=== PATIENT | female | born 1965 | race Caucasian/White ===

== ENCOUNTER 2016-05-03 09:40 | Emergency (ER) | payer OTHER ==
[~2016-05-03] VITALS: Ht 157.5 cm; Wt 104.5 kg
[~2016-05-03 09:40] MED LIST: ASPI-973 PO; ATOR40TA69 PO; BUPR1PAT4 TD; BUSP10TA2 PO; CITA40TA13 PO; CYCL10TA9 PO; DEP500A PO; FERR-83 PO; HYDR-4003 PO; KLO5T; LEVO250T45 PO; LEVO50TA6 PO; LISI-567 PO; LORA1TAB PO; MIRT15TA6 PO; NAM10 PO; NPR500T PO; ONDA4TAB12 PO; ONDA4TAB9 PO; PANT40TA3 PO; POLY17PO2; PRAZ1CAP2 PO; PRAZ2CAP2 PO; PREG50CA PO; PROC-4 PO; PROM25TA14 PO; VERA80TA PO
[2016-05-03 09:56] VITALS: BP 153/95; PULSE 71; RESP 15; O2SAT 99
--- NOTE | 2016-05-03 10:06 | ED.REPORT ---
HPI-General Illness Date of Service May 03, 2016 ED Provider: Derrick Stahl DO Ms. Ramirez is a 51 y/o woman with history of CVA and fibromyalgia who presents today for tremors and fatigue. She goes to PT for her neck pain. She went to PT 10:30-11:00 AM yesterday and since then has felt "sluggish and super tired". She also has had mouth tremors for the past month, and they have been mild and able to be controlled. Today is the first time the tremors are out of control. The mouth tremor has worsened over the last week. She follows with neurology, Dr. Juárez, and last saw there about 1 month ago. She has seen neurosurgery for bilateral carpal tunnel syndrome. In the past, she has had catatonic episodes where she could not move, open eyes, or speak with an associated headache but she is able to hear everything around her. She had 10 episodes before being diagnosed but has not had a catatonic episode for a couple of months. She was prescribed Depakote for migraines associated with catatonic state. Her caregiver found her this morning "unresponsive" but pt could hear them but couldn't move or respond to them. Her breathing got low and she is having bad tremors. The episode this morning was similar to her previous catatonic migraine episodes but the jaw tremor is new. She developed a mild headache afterwards. She states that her Lyrica dose was increased 2 months ago by [facility]. When she had the stroke, she had left facial droop and leg weakness. Pt felt "drunk" and lightheaded. Nursing Notes Stated Complaint: ALTERED LEVEL OF CONSCIOUSNESS Chief Complaint: Neuro Symptoms/ Deficits Nursing Notes Reviewed: Yes Allergies: Coded Allergies: gabapentin (Verified Allergy, Intermediate, psychotic, 01/13/16) Contrast Media (Verified Allergy, Unknown, 01/13/16) metoclopramide (Verified Allergy, Unknown, 01/13/16) PT REPORTS IT CAUSES HER TO SHAKE? morphine (Verified Adverse Reaction, Severe, excessive vomiting, 01/13/16) Scheduled Aspirin (Aspirin) 81 Mg Tablet.dr 81 MG PO DAILY Atorvastatin Calcium (Atorvastatin Calcium) 40 Mg Tablet 80 MG PO HS Buspirone (Buspirone) 10 Mg Tablet 10 MG PO TID Citalopram (Citalopram) 40 Mg Tablet 40 MG PO HS Clonazepam (Clonazepam) 0.5 Mg Tablet BID Divalproex DR (Depakote DR) 500 Mg Tablet 500 MG PO BID Swallowed whole without chewing to avoid local irritation of the mouth and throat. Ferrous Sulfate (Ferrous Sulfate) 325 Mg Tablet 325 MG PO MORNING Levofloxacin (Levofloxacin) 250 Mg Tablet 250 MG PO DAILY Levothyroxine (Levothyroxine) 50 Mcg Tablet 50 MCG PO DAILYAC Lisinopril (Lisinopril) 20 Mg Tablet 30 MG PO HS Memantine (Namenda) 10 Mg Tablet 5 MG PO MORNING Memantine (Namenda) 10 Mg Tablet 10 MG PO HS Mirtazapine (Mirtazapine) 15 Mg Tablet 15 MG PO HS Pantoprazole DR (Pantoprazole DR) 40 Mg Tablet.dr 40 MG PO MORNING Polyethylene Glycol 3350 (Polyethylene Glycol 3350) 17 Gm Powd.pack MORNING Prazosin (Prazosin) 1 Mg Capsule 1 MG PO QAM Prazosin (Prazosin) 2 Mg Capsule 2 MG PO HS Pregabalin (Lyrica) 50 Mg Capsule 50 MG PO BID Verapamil (Calan) 80 Mg Tablet 40 MG PO BID Scheduled PRN Buprenorphine (Butrans) 1 Each Patch.tdwk 1 EACH TD WEEKLY PRN PRN For Pain Cyclobenzaprine (Cyclobenzaprine) 10 Mg Tablet 10 MG PO TID PRN PRN Spasm Hydrocodone-Acetaminophen 5-325 mg (Hydrocodone-Acetaminophen 5-325 mg) 1 Each Tablet 1-2 TABLET PO Q4H PRN PRN For Pain Lorazepam (Lorazepam) 1 Mg Tablet 1 MG PO BID PRN PRN Headache Naproxen (Naproxen) 500 Mg Tab 500 MG PO BID PRN PRN For Pain Ondansetron ODT (Ondansetron ODT) 4 Mg Tab.rapdis 1-2 TABLET PO PRN For Nausea Ondansetron ODT (Zofran ODT) 4 Mg Tablet 4 MG PO Q4H PRN PRN For Nausea Prochlorperazine Maleate (Compazine) 10 Mg Tablet 10 MG PO TID PRN PRN Headache Promethazine (Promethazine) 25 Mg Tablet 25 MG PO Q6H PRN PRN Headache Take for headache OR nausea General Time Seen by MD: 10:04 Chief Complaint Other (tremor) Hx Obtained From: Patient Past Medical History Past Medical History fibromyalgia carpal tunnel syndrome migraines chronic pain sleep apnea Past Surgical History denies Smoking History Former Smoker Social History Alcohol Use: Denies alcohol use Drug Use: Other (marijuana) Review of Systems Unable to Obtain ROS Mental status (in the middle of ROS, pt no longer verbally responded but opened her eyes to verbal stimuli) Full Review of Systems Constitutional: Reports: Fatigue, Weakness - generalized, Denies: Chills, Fever Eyes: Denies: Blurred bilateral, Visual loss bilateral Ears / Nose / Throat: Denies: Ear ringing bilateral, Hearing loss bilateral Respiratory: Denies: Non-productive cough, Shortness of breath Cardiovascular: Denies: Chest pain GI: Denies: Abdominal pain Neurologic: Reports: Headache, Unable to speak, Denies: Focal weakness, Seizure Psychiatric: Reports: Change mental status Physical Exam Vital Signs Vital Signs Date Time Temp Pulse Resp B/P Pulse Ox O2 Delivery O2 Flow Rate FiO2 05/03/16 13:30 67 11 116/72 95 Room Air 05/03/16 13:00 68 11 130/75 97 Room Air 05/03/16 09:56 37.2 71 15 153/95 99 Room Air Initial VS: Reviewed General/Constitutional: Awake, No acute distress, Cooperative Pt was awake, alert, and orientedx3 at beginning of exam. In the middle of the interview, she stopped verbally responding but responded to verbal stimuli by turning her eyes towards me. Upon returning to the pt's room with Dr. Stahl, she was again responding verbally to questions. Head / Eyes: Normocephalic, PERRL, EOMI Respiratory / Chest: Breath sounds NL, Breath sounds = bilat, No respiratory distress Cardiovascular: Heart rate NL, Regular rhythm, Heart sounds NL, No gallop, No murmurs, No rubs Abdomen: Soft, Non-tender, No guarding, No rebound, BS normoactive, No distention Lower Extremity / Pelvis / MS: Inspection NL, No swelling, Non-tender, No erythema Neurologic: Oriented X3, Speech NL, No motor deficits, No sensory deficits, CN II - XII intact, Reflexes equal bilat, Memory NL Movement Abnormality: Positive: Dystonia (of lips) Interpretation & Diagnostics Interpretation & Diagnostics: EKG normal sinus rhythm, low voltage in pre-cordial leads CXR: IMPRESSION: No acute process. Cardiomegaly. Dictated by: Jeanna Philip M.D. on 05/03/2016 at 11:35 Approved by: Jeanna Philip M.D. on 05/03/2016 at 11:35 CT brain without contrast: IMPRESSION: No acute intracranial abnormality. Dictated by: Jeanna Philip M.D. on 05/03/2016 at 12:00 Approved by: Jeanna Philip M.D. on 05/03/2016 at 12:00 Urine test is negative Lab Results Interpretation Result Diagram: 05/03/16 1112 05/03/16 1112 Test 05/03/16 11:12 05/03/16 11:50 White Blood Count 7.7th/mm3 (3.8-10.1) Red Blood Count 4.50mil/mm3 (3.90-5.20) Hemoglobin 14.1g/dL (12.0-15.6) Hematocrit 40.4% (35.0-46.0) Mean Corpuscular Volume 89.8fL (81-100) Mean Corpuscular Hemoglobin 31.3pg (27.0-35.0) Mean Corpuscular Hemoglobin Concent 34.9% (32.0-37.0) Red Cell Distribution Width 11.7% (12.3-15.4) Platelet Count 162bil/L (150-400) Neutrophils (%) (Auto) 56.9% (40-74) Lymphocytes (%) (Auto) 30.7% (14-46) Monocytes (%) (Auto) 8.5% (4-12) Eosinophils (%) (Auto) 3.1% (0-5) Basophils (%) (Auto) 0.4% (0-3) Sodium Level 142mEq/L (134-144) Potassium Level 4.1mEq/L (3.5-5.2) Chloride Level 99mEq/L (97-108) Carbon Dioxide Level 29mmol/L (18-29) Blood Urea Nitrogen 15mg/dL (6-24) Creatinine 0.89mg/dL (0.57-1.00) Estimat Glomerular Filtration Rate 97mL/min (>59) Glucose Level 102mg/dL (60-99) Lactic Acid Level 2.7mmol/L (0.4-2.0) Calcium Level 9.1mg/dL (8.5-10.1) Magnesium Level 2.3mg/dL (1.6-2.6) Total Bilirubin 0.3mg/dL (0.0-1.2) Aspartate Amino Transf (AST/SGOT) 29U/L (0-50) Alanine Aminotransferase (ALT/SGPT) 31U/L (0-32) Alkaline Phosphatase 93U/L (25-150) Total Protein 7.0g/dL (6.4-8.4) Albumin 4.0g/dL (3.4-5.0) Salicylates Level < 3.0ug/mL (30-250) Acetaminophen Level < 15.0ug/mL Rx (10-25) Valproic Acid (Depakene) Level 28ug/mL (50-125) Alcohol, Quantitative < 10mg/dL (0-10) Urine Color Yellow (YELLOW) Urine Appearance Hazy (CLEAR,HAZY) Urine pH 6.0 (5.0-8.0) Urine Specific [place] 1.025 (1.003-1.035) Urine Protein Negativemg/dL (NEG,TRACE) Urine Glucose (UA) Negativemg/dL (NEGATIVE) Urine Ketones Negativemg/dL (NEGATIVE) Urine Occult Blood Trace (NEGATIVE) Urine Nitrite Negative (NEGATIVE) Urine Bilirubin Negative (NEGATIVE) Urine Urobilinogen Normalmg/dL (NORMAL) Urine Leukocyte Esterase Small (NEGATIVE) Urine RBC 0-2/hpf (0-2) Urine WBC 11-50/hpf (0-5) Urine Epithelial Cells Occasional/hpf (NONE-MOD) Urine Crystals None seen (NONE SEEN) Urine Bacteria Moderate/hpf (NONE-FEW) Urine Hyaline Casts None/lpf (NONE) Urine Granular Casts None seen (NONE SEEN) Urine Waxy Casts None seen (NONE SEEN) Urine Red Blood Cell Casts None seen (NONE SEEN) Urine White Blood Cell Casts None seen (NONE SEEN) Urine Mucus None seen (None Seen) Urine Trichomonas None seen (NONE SEEN) Urine Yeast None (NONE SEEN) Urinalysis Comment None Urine Culture Reflexed Indicated Re-Eval/Medical Decision Med Decision/Clinical Course 1. Mouth tremors -Pt given 1 mg of lorazepam in the ED -Calcium level is WNL -No reproducible clonus elsewhere on exam 2. catatonic episode -Pt has history of catatonia -CXR does not show acute pulmonary process -CT scan brain without contrast shows no acute intracranial abnormality -Valproic acid level is low, but pt is prescribed Depakote for migraines and as a mood stabilizer and not for seizures 3. UTI -Pt has a UTI based on UA results and given 1 gram of Rocephin in the ED. Reflex urine culture performed. -Likely contributes to mildly elevated lactic acid level Consultation : Referral / Consult Name: Nito Patel MD Consulted With: Neurology Requested Call at: 13:15 Call Returned at: 13:43 Potato Chip Sorter: Agrees with plan Note: Discussed pt in detail with Dr. Patel. Dr. Patel advises that pt does not need to be admitted given her history of catatonia spells. Depakote was prescribed for mood stability and for migraines. He does not think it sounds like serotonin syndrome based on her exam today and duration of mouth tremors. He recommends following up with pain management to discuss Lyrica and to evaluate if it's dose needs to possibly be adjusted based on pt's mouth tremors. He also advises follow up with neurology sooner than her currently scheduled appointment in 11/2016. DDx: medication side effect, migraine, serotonin syndrome, CVA, syncopal episode Discharge & Departure Primary Impression: Catatonia Additional Impressions: Tremor Urinary tract infection Urinary tract infection type: site unspecified Hematuria presence: without hematuria Qualified Code: N39.0 - Urinary tract infection, site not specified Disposition: Home Discharge Condition All VS Reviewed: Yes Condition: Stable Patient Instructions: Urinary Tract Infection in Women (ED) Additional Instructions: Based on your urine sample today, you likely have a urinary tract infection. Your urine has been cultured and you will be notified of the results. The CT scan of your head did not show any acute changes today. You were given 1 gram of Rocephin in the emergency department. Take Keflex 500 mg 1 tablet by mouth twice per day for 7 days. While taking antibiotics, you should eat yogurt or take probiotics to prevent diarrhea. Continue your medications as prescribed. Follow up with pain management to discuss the recent increase of Lyrica and the mouth tremors that you are having. Follow up with neurology, Dr. Juárez sooner than your previously scheduled appointment to further discuss the episode of catatonia. Follow up with your primary care provider in 1 week. Return to the emergency department if you experience new numbness or tingling, chest pain, shortness of breath, trouble breathing, fever, blood in your urine, or abdominal pain. Referrals: Kalyani Kiser MD Other Prior to previously scheduled appointment in 11/2016. Pt had likely another catatonic episode today. She also has new onset mouth tremor. Brigida James PA-C 1 Week [facility] 3 to 4 Days New onset mouth tremor Attending Statement The patient was seen and examined together with Dr. Gutierrez on 05/03/16 and I have added additional information to the note above copies to: Brigida James PA-C, Timothy S DO May 03, 2016 10:06 Smita Gutierrez DO May 03, 2016 10:43
[2016-05-03] MEDS ORDERED: 0.9% Sodium Chloride 1,000 ML IV ONE (11:00)
[2016-05-03 11:20] LABS: BASOPHILS % (AUTO) 0.4 % (0-3); EOSINOPHILS % (AUTO) 3.1 % (0-5); MONOCYTES % (AUTO) 8.5 % (4-12); Mean Corpuscular Hemoglobin 31.3 pg (27.0-35.0); Mean Corpuscular Volume 89.8 fL (81-100); NEUTROPHILS % (AUTO) 56.9 % (40-74); Platelet Count 162 bil/L (150-400)
--- NOTE | 2016-05-03 11:36 | DRSVH ---
PROCEDURE: X-RAY CHEST ONE VIEW, PORTABLE ([id number]) INDICATIONS: weakness TECHNIQUE: One view of the chest was acquired. COMPARISON: [facility], CR, XR CHEST 1VW (PORTABLE), 11/19/2015, 13:25. [facility], CR, XR CHEST 1VW (PORTABLE), 09/13/2015, 13:27. [facility], CR, XR CHEST 1VW (POR TABLE), 06/11/2015, 0:44. FINDINGS: Surgical changes and devices: None. Lungs and pleura: No pleural effusions or pneumothorax. Lungs are clear. Mediastinum: Mediastinal contours appear normal. Heart size is enlarged. Bones and chest wall: No suspicious bony lesions. Overlying soft tissues appear unremarkable. IMPRESSION: No acute process. Cardiomegaly. Dictated by: Jeanna Philip M.D. on 05/03/2016 at 11:35 Approved by: Jeanna Philip M.D. on 05/03/2016 at 11:35
--- NOTE | 2016-05-03 12:02 | DRSVH ---
PROCEDURE: CT BRAIN WITHOUT CONTRAST ([id number]) INDICATIONS: altered mental status TECHNIQUE: Noncontrast 4.5 mm thick angled axial sections acquired from the foramen magnum to the vertex, with c oronal reformats. COMPARISON: [facility], CT, CT BRAIN WO CON, 09/13/2015, 12:54. [facility], CT, CT BRAIN WO CON, 06/10/2015, 22:32. FINDINGS: Image quality: Excellent. CSF spaces: Basal cisterns are patent. No extra-axial fluid collections. Ventricles are normal in size and shape. Brain: No midline shift. No intracranial masses or hemorrhage. Lopez-white matter interface is norm al. Skull and face: Calvarium and visualized facial bones are intact, without suspicious lesions. Sinuses: Visualized sinuses and mastoids are clear. IMPRESSION: No acute intracranial abnormality. Dictated by: Jeanna Philip M.D. on 05/03/2016 at 12:00 Approved by: Jeanna Philip M.D. on 05/03/2016 at 12:00
[2016-05-03 12:23] LABS: Magnesium 2.3 mg/dL (1.6-2.6); Valproic Acid 28 ug/mL (50-125)
[2016-05-03 12:36] LABS: APPEARANCE,URINE HAZY (CLEAR,HAZY); COLOR,URINE YELLOW (YELLOW); OCCULT BLOOD,URINE TRACE (NEGATIVE); UROBILINOGEN,URINE NORMAL (NORMAL)
[2016-05-03] MEDS ORDERED: cefTRIAXone Inj 1,000 MG in IV Premix 1 EACH IV ONE (12:55)
[2016-05-03 13:00] VITALS: BP 130/75; PULSE 68; RESP 11; O2SAT 97
[2016-05-03 13:30] VITALS: BP 116/72; PULSE 67; RESP 11; O2SAT 95
[2016-05-03 15:35] VITALS: BP 101/58; PULSE 77; RESP 15; O2SAT 94
== END 2016-05-03 15:36 | disposition home or self-care (01) ==
LOC: EDBD 09:40 → SED 09:40 → EDUNIT# 09:40 → SED 15:36
DX: F20.2 Catatonic schizophrenia (principal); N39.0 Urinary tract infection, site not specified; M79.7 Fibromyalgia; Z87.891 Personal history of nicotine dependence; Z86.73 Personal history of transient ischemic attack (TIA), and cerebral infarction without residual deficits; Z88.5 Allergy status to narcotic agent; Z88.6 Allergy status to analgesic agent; Z91.041 Radiographic dye allergy status
CPT/HCPCS: 36415; 70450; 71010; 80053; 80164; 81000; 81002; 81025; 83605; 83735; 85025; 87086; 87088; 90791; 93005; 96361; 96365; 96375; 99285; G0480; J0696; J2060; J7030

== ENCOUNTER 2016-07-31 09:28 | Emergency (ER) | payer OTHER ==
[~2016-07-31] VITALS: Ht 157.5 cm; Wt 109.1 kg
[2016-07-31 09:46] VITALS: BP 127/91; PULSE 74; RESP 18; O2SAT 99
--- NOTE | 2016-07-31 11:00 | ED.REPORT ---
HPI-Back Pain 40 and Over Date of Service Jul 31, 2016 ED Provider: Chapito Gaming MD This is a 51 year old female with a history of fibromyalgia, chronic pain, sleep apnea, migraines, and kidney stones presenting to the emergency department complaining of left flank pain that began 3 weeks ago and is persistent. Denies dysuria, hematuria, changes in bowel or bladder habits, fever , chills, nausea, or vomiting at this time. Reports similar symptoms with previous kidney stones. Nursing Notes Stated Complaint: BACK PAIN/POSSIBLE KIDNEY STONES Chief Complaint: Back Pain or Injury Nursing Notes Reviewed: Yes Allergies: Coded Allergies: gabapentin (Verified Allergy, Intermediate, psychotic, 07/31/16) Contrast Media (Verified Allergy, Unknown, 07/31/16) metoclopramide (Verified Allergy, Unknown, 07/31/16) PT REPORTS IT CAUSES HER TO SHAKE? morphine (Verified Adverse Reaction, Severe, excessive vomiting, 07/31/16) Scheduled Aspirin (Aspirin) 81 Mg Tablet.dr 81 MG PO DAILY Atorvastatin Calcium (Atorvastatin Calcium) 40 Mg Tablet 80 MG PO HS Buspirone (Buspirone) 10 Mg Tablet 10 MG PO TID Ciprofloxacin (Ciprofloxacin) 500 Mg Tablet 500 MG PO BID Citalopram (Citalopram) 40 Mg Tablet 40 MG PO HS Clonazepam (Clonazepam) 0.5 Mg Tablet BID Divalproex DR (Depakote DR) 500 Mg Tablet 500 MG PO BID Swallowed whole without chewing to avoid local irritation of the mouth and throat. Ferrous Sulfate (Ferrous Sulfate) 325 Mg Tablet 325 MG PO MORNING Levofloxacin (Levofloxacin) 250 Mg Tablet 250 MG PO DAILY Levothyroxine (Levothyroxine) 50 Mcg Tablet 50 MCG PO DAILYAC Lisinopril (Lisinopril) 20 Mg Tablet 30 MG PO HS Memantine (Namenda) 10 Mg Tablet 5 MG PO MORNING Memantine (Namenda) 10 Mg Tablet 10 MG PO HS Mirtazapine (Mirtazapine) 15 Mg Tablet 15 MG PO HS Pantoprazole DR (Pantoprazole DR) 40 Mg Tablet.dr 40 MG PO MORNING Polyethylene Glycol 3350 (Polyethylene Glycol 3350) 17 Gm Powd.pack MORNING Prazosin (Prazosin) 1 Mg Capsule 1 MG PO QAM Prazosin (Prazosin) 2 Mg Capsule 2 MG PO HS Pregabalin (Lyrica) 50 Mg Capsule 50 MG PO BID Tamsulosin (Flomax) 0.4 Mg Capsule 0.4 MG PO DAILY Verapamil (Calan) 80 Mg Tablet 40 MG PO BID Scheduled PRN Buprenorphine (Butrans) 1 Each Patch.tdwk 1 EACH TD WEEKLY PRN PRN For Pain Cyclobenzaprine (Cyclobenzaprine) 10 Mg Tablet 10 MG PO TID PRN PRN Spasm Hydrocodone-Acetaminophen 5-325 mg (Hydrocodone-Acetaminophen 5-325 mg) 1 Each Tablet 1-2 TABLET PO Q4H PRN PRN For Pain Lorazepam (Lorazepam) 1 Mg Tablet 1 MG PO BID PRN PRN Headache Naproxen (Naproxen) 500 Mg Tab 500 MG PO BID PRN PRN For Pain Ondansetron ODT (Ondansetron ODT) 4 Mg Tab.rapdis 1-2 TABLET PO PRN For Nausea Ondansetron ODT (Zofran ODT) 4 Mg Tablet 4 MG PO Q4H PRN PRN For Nausea Prochlorperazine Maleate (Compazine) 10 Mg Tablet 10 MG PO TID PRN PRN Headache Promethazine (Promethazine) 25 Mg Tablet 25 MG PO Q6H PRN PRN Headache Take for headache OR nausea General Time Seen by MD: 10:42 Chief Complaint Other Hx Obtained From: Patient Arrived By: Walk-in Sudden in Onset?: Yes Onset Occurred: Just prior to arrival Symptom Duration: Since onset Severity: Current: Mild Pertinent Negative: Pt denies other symptoms Recent Healthcare: No recent doctor visit, No recent hospitalization Similar Sx Previous: No Past Medical History Past Medical History fibromyalgia carpal tunnel syndrome migraines chronic pain sleep apnea Reports: Thyroid disease Past Surgical History denies Reports: Appendectomy Family History Noncontributory Smoking History Former Smoker Social History Alcohol Use: Denies alcohol use Drug Use: Other Other Social History: Local resident Occupation Not currently employed Ambulatory Status Independent Review of Systems Constitutional: Denies: Chills, Fever GI: Denies: Abdominal pain, Nausea, Vomiting Female: Reports: Flank pain, Denies: Dysuria, Hematuria, Pelvic pain Complete sys rev & neg: except as marked. Physical Exam Initial Vital Signs Vital Signs (First) Date Time Temp Pulse Resp B/P Pulse Ox O2 Delivery O2 Flow Rate FiO2 07/31/16 09:46 36.5 74 18 127/91 99 Initial VS: Reviewed Head / Eyes: Atraumatic, Normocephalic, PERRL ENT: Mucous membranes moist, Conjunctiva normal, No scleral icterus Neck: Supple, Non-tender, Full range of motion Extremities: Vascular intact, Neuro intact, No swelling, No tenderness Skin: Warm, Dry, No cyanosis Psychiatric: Mood/affect normal, Behavior normal, Normal thought content General/Constitutional: Awake, Alert Respiratory / Chest: Breath sounds NL, Breath sounds = bilat, No respiratory distress, No rales, No rhonchi, No wheezing Cardiovascular: Heart rate NL, Regular rhythm, Heart sounds NL, No murmurs, Peripheral circulation NL Abdomen: Soft, Non-tender, No guarding, No rebound, No distention, No palpable mass, No pulsatile mass Back: No midline vertebral tend, No paraspinal tenderness Mild left lower back tenderness. No CVA tenderness. Neurologic: Oriented X3, Speech NL, No motor deficits, No sensory deficits, Reflexes equal bilat Interpretation & Diagnostics CT KUB IMPRESSION: 1. Nonobstructing 2-3 mm bilateral renal stones, without hydronephrosis. 2. 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 3. 1.4 cm indeterminate groundglass opacity in the posterior left lung base. Following the Fleischner society criteria outlined below, recommend 6 month followup noncontrast chest CT for reassessment. Fleischner Society criteria for SUB-SOLID lung nodule followup. Solitary pure ground-glass nodules<6 mm (ground glass or part solid)No followup needed. 6 mm or larger (ground glass)CT at 6-12 months to confirm persistence, then CT every 2 years until 5 years.6 mm or larger (part solid)CT at 3-6 months to confirm persistence, then annual CT until 5 years if unchanged and solid component remains <6 mm. Multiple sub-solid nodules<6 mmCT at 3-6 months, then CT consider at 2 & 4 years for high risk patients. [address] at 3-6 months. Subsequent management based on most suspicious lesions. Recommendations do not apply to lung cancer screening, patients with immunosuppression, or patients with known primary cancer. Dictated by: Aron James M.D. on 07/31/2016 at 12:05 Approved by: Aron James M.D. on 07/31/2016 at 12:15 Lab Results Interpretation Result Diagram: 07/31/16 1117 07/31/16 1117 Test 07/31/16 10:40 07/31/16 11:17 Urine Color Yellow (YELLOW) Urine Appearance Hazy (CLEAR,HAZY) Urine pH 5.5 (5.0-8.0) Urine Specific [place] 1.025 (1.003-1.035) Urine Protein Negativemg/dL (NEG,TRACE) Urine Glucose (UA) Negativemg/dL (NEGATIVE) Urine Ketones Negativemg/dL (NEGATIVE) Urine Occult Blood Trace (NEGATIVE) Urine Nitrite Negative (NEGATIVE) Urine Bilirubin Negative (NEGATIVE) Urine Urobilinogen Normalmg/dL (NORMAL) Urine Leukocyte Esterase Small (NEGATIVE) Urine RBC 3-10/hpf (0-2) Urine WBC 11-50/hpf (0-5) Urine Epithelial Cells Occasional/hpf (NONE-MOD) Urine Crystals None seen (NONE SEEN) Urine Bacteria Moderate/hpf (NONE-FEW) Urine Hyaline Casts None/lpf (NONE) Urine Granular Casts None seen (NONE SEEN) Urine Waxy Casts None seen (NONE SEEN) Urine Red Blood Cell Casts None seen (NONE SEEN) Urine White Blood Cell Casts None seen (NONE SEEN) Urine Mucus None seen (None Seen) Urine Trichomonas None seen (NONE SEEN) Urine Yeast None (NONE SEEN) Urinalysis Comment None Urine Culture Reflexed Indicated Hold Urine Received (Received) White Blood Count 7.5th/mm3 (3.8-10.1) Red Blood Count 4.41mil/mm3 (3.90-5.20) Hemoglobin 13.5g/dL (12.0-15.6) Hematocrit 40.2% (35.0-46.0) Mean Corpuscular Volume 91.2fL (81-100) Mean Corpuscular Hemoglobin 30.6pg (27.0-35.0) Mean Corpuscular Hemoglobin Concent 33.6% (32.0-37.0) Red Cell Distribution Width 12.9% (12.3-15.4) Platelet Count 134bil/L (150-400) Neutrophils (%) (Auto) 55.0% (40-74) Lymphocytes (%) (Auto) 30.3% (14-46) Monocytes (%) (Auto) 9.6% (4-12) Eosinophils (%) (Auto) 4.1% (0-5) Basophils (%) (Auto) 0.5% (0-3) Sodium Level 140mEq/L (134-144) Potassium Level 4.3mEq/L (3.5-5.2) Chloride Level 100mEq/L (97-108) Carbon Dioxide Level 25mmol/L (18-29) Blood Urea Nitrogen 17mg/dL (6-24) Creatinine 0.90mg/dL (0.57-1.00) Estimat Glomerular Filtration Rate 95mL/min (>59) Glucose Level 142mg/dL (60-99) Calcium Level 9.2mg/dL (8.5-10.1) Total Bilirubin 0.4mg/dL (0.0-1.2) Aspartate Amino Transf (AST/SGOT) 57U/L (0-50) Alanine Aminotransferase (ALT/SGPT) 50U/L (0-32) Alkaline Phosphatase 107U/L (25-150) Total Protein 7.1g/dL (6.4-8.4) Albumin 3.8g/dL (3.4-5.0) Lipase 23U/L (13-60) Re-Eval/Medical Decision Med Decision/Clinical Course 51-year-old female history of kidney stones presenting with left lower back pain intermittent for several weeks. No fevers, nausea vomiting sentences pyelonephritis. Urine suggests UTI. CT abdomen and pelvis shows small bilateral nonobstructing kidney stones. We will treat with antibiotics and Flomax plan follow up with urology this week in primary doctor tomorrow. She is advised to return immediately should she develop any worsening pain, fevers, nausea vomiting, abdominal pain, any other new or worsening symptoms. Patient agrees with plan. Counseled Regarding: Diagnosis, Lab results, Need for follow-up Discharge & Departure Impression: Primary Impression: Nephrolithiasis Additional Impression: UTI (urinary tract infection) Urinary tract infection type: site unspecified Hematuria presence: without hematuria Qualified Code: N39.0 - Urinary tract infection, site not specified Disposition: Home Discharge Condition All VS Reviewed: Yes Condition: Stable Patient Instructions: Nephrolithiasis (ED) Additional Instructions: Thank you for seeking care in the emergency department today. Your CT scan indicated kidney stones. Follow-up with your primary care provider. Return to the emergency department if you develop any new or worsening symptoms. Referrals: Brigida James PA-C (PCP) [facility] Attestation Portions of this note were transcribed by Juli Wagner. I, Dr. Gaming personally performed the history, physical exam and medical decision-making; I reviewed and confirmed the accuracy of the information in the transcribed note. Signed by Marcy Neal, 07/31/2016 at 18:00. Chapito Gaming MD Jul 31, 2016 11:00 JULI WAGNER Jul 31, 2016 11:04
[2016-07-31 11:22] LABS: BASOPHILS % (AUTO) 0.5 % (0-3); EOSINOPHILS % (AUTO) 4.1 % (0-5); MONOCYTES % (AUTO) 9.6 % (4-12); Mean Corpuscular Hemoglobin 30.6 pg (27.0-35.0); Mean Corpuscular Volume 91.2 fL (81-100); Platelet Count 134 bil/L (150-400)
[2016-07-31 11:25] LABS: APPEARANCE,URINE HAZY (CLEAR,HAZY); COLOR,URINE YELLOW (YELLOW); OCCULT BLOOD,URINE TRACE (NEGATIVE); PH,URINE 5.5 (5.0-8.0); UROBILINOGEN,URINE NORMAL (NORMAL)
--- NOTE | 2016-07-31 12:17 | DRSVH ---
PROCEDURE: CT KUB ([id number]) INDICATIONS: 51 year-old female with left flank pain. TECHNIQUE: Noncontrast 5 mm thick sections acquired from the diaphragms to the symphysis. 5 mm thick coronal an d sagittal reformats were then performed. For radiation dose reduction, the following was used: aut omated exposure control, adjustment of mA and/or kV according to patient size. COMPARISON: [facility], CT, CT CHEST WO CON, 01/24/2015, 1:10. FINDINGS: Image quality: Excellent. Lung bases: On axial image 3, 1.4 cm groundglass nodule in the posterior left lung base appears new s stephenie 2014. Heart size is normal. Urinary system: Both kidneys are normal in size. Inferolateral left renal partially exophytic 3.5 x 2.8 cm lesion measures -82 Hounsfield units in density. Solitary nonobstructing 2 mm left renal stone is present, as well as 3 mm right renal stone. No hydronephrosis or perinephric fat stranding. Bot h ureters appear non-dilated throughout their expected courses. Bladder wall thickness is normal; no calcified bladder stones. Other solid organs: Liver and spleen are normal in size. There is diffuse fatty infiltration of the liver, with patchy subcapsular sparing around the gallbladder fossa. Gallbladder wall thickness is n ormal. Pancreas is normal in contours. No adrenal nodules. Peritoneum and bowel: Unenhanced bowel loops demonstrate normal wall thickness and caliber. No colo stuart diverticula. No free fluid or air. Nodes and vessels: No retroperitoneal or mesenteric adenopathy by size criteria. Aorta and inferior vena cava are normal in caliber. Abdominal wall: No ventral hernias. Pelvis: No free pelvic fluid. No inguinal hernias or adenopathy. Uterus and ovaries are normal in size. Bones: No suspicious bony lesions. No vertebral body compression fractures. IMPRESSION: 1. Nonobstructing 2-3 mm bilateral renal stones, without hydronephrosis. 2. 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 3. 1.4 cm indeterminate groundglass opacity in the posterior left lung base. Following the Fleischner society criteria outlined below, recommend 6 month followup noncontrast chest CT for reassessment. Fleischner Society criteria for SUB-SOLID lung nodule followup. Solitary pure ground-glass nodules<6 mm (ground glass or part solid)No followup needed. 6 mm or larg er (ground glass)CT at 6-12 months to confirm persistence, then CT every 2 years until 5 years.6 mm o r larger (part solid)CT at 3-6 months to confirm persistence, then annual CT until 5 years if unchang ed and solid component remains <6 mm. Multiple sub-solid nodules<6 mmCT at 3-6 months, then CT consi brian at 2 & 4 years for high risk patients. [address] at 3-6 months. Subsequent management b ased on most suspicious lesions. Recommendations do not apply to lung cancer screening, patients with immunosuppression, or patients with known primary cancer. Dictated by: Aron James M.D. on 07/31/2016 at 12:05 Approved by: Aron James M.D. on 07/31/2016 at 12:15
[2016-07-31] MEDS ORDERED: TAMS0.4C98 PO (13:14)
[2016-07-31] MEDS ORDERED: CIPR-198 PO (13:14)
== END 2016-07-31 13:34 | disposition home or self-care (01) ==
LOC: SED 09:28
DX: N20.0 Calculus of kidney (principal); N39.0 Urinary tract infection, site not specified; Z87.891 Personal history of nicotine dependence; Z88.5 Allergy status to narcotic agent; Z88.8 Allergy status to other drugs, medicaments and biological substances; Z91.041 Radiographic dye allergy status; Z79.82 Long term (current) use of aspirin; Z79.899 Other long term (current) drug therapy
CPT/HCPCS: 36415; 74176; 80053; 81000; 83690; 85025; 87086; 87088; 96372; 99285; J1885

== ENCOUNTER 2016-11-30 10:27 | Inpatient (IN) | payer MEDICAID, OTHER ==
[~2016-11-30] VITALS: Ht 157.5 cm; Wt 106.8 kg
[~2016-11-30 10:27] MED LIST changes: +CIPR-198 PO; +TAMS0.4C98 PO
[2016-11-30 10:31] VITALS: BP 117/83; PULSE 89; RESP 16; O2SAT 96
--- NOTE | 2016-11-30 11:33 | ED.REPORT ---
HPI-Psychiatric Illness Date of Service Nov 30, 2016 ED Provider: Nikhil Lornezo PA-C Nesha is a 51-year-old female with a history of depression and anxiety, suicide attempt, CVA, DM, apnea, migraines presents to the emergency department with a chief complaint suicidal ideation. Patient reports increasing depression and anxiety as well as "constant" thoughts of suicide over the last 6 months. She cites the end of a 30 year relationship and the necessity to change her living situation as causes. Patient reports a history of suicide attempt through overdose. Her plan today would be to overdose again. She also reports a history of several hospitalizations in this facility for similar complaints. Patient was referred from her pain clinic where she confided that she has thoughts of suicide. She is treated for pain primarily located in her hands and feet with Butrans and Lyrica. Patient reports that she currently lives with 2 other women, does not have access to firearms. She does engage with the primary care provider as well as [facility], whom she has plans to see next week. Currently being treated for an ulcer on her left foot. Admits to ongoing pain in her hands and feet. Denies other complaints. Denies use of drugs or alcohol. Patient wishes to be admitted to the hospital. Nursing Notes Stated Complaint: PSYCH EVAL Chief Complaint: Psychiatric Complaint Nursing Notes Reviewed: Yes Allergies: Coded Allergies: gabapentin (Verified Allergy, Intermediate, psychotic, 07/31/16) Contrast Media (Verified Allergy, Unknown, 07/31/16) metoclopramide (Verified Allergy, Unknown, 07/31/16) PT REPORTS IT CAUSES HER TO SHAKE? morphine (Verified Adverse Reaction, Severe, excessive vomiting, 07/31/16) Scheduled Aspirin (Aspirin) 81 Mg Tablet.dr 81 MG PO DAILY Atorvastatin Calcium (Atorvastatin Calcium) 40 Mg Tablet 80 MG PO HS Buspirone (Buspirone) 10 Mg Tablet 10 MG PO TID Ciprofloxacin (Ciprofloxacin) 500 Mg Tablet 500 MG PO BID Citalopram (Citalopram) 40 Mg Tablet 40 MG PO HS Clonazepam (Clonazepam) 0.5 Mg Tablet BID Divalproex DR (Depakote DR) 500 Mg Tablet 500 MG PO BID Swallowed whole without chewing to avoid local irritation of the mouth and throat. Ferrous Sulfate (Ferrous Sulfate) 325 Mg Tablet 325 MG PO MORNING Levofloxacin (Levofloxacin) 250 Mg Tablet 250 MG PO DAILY Levothyroxine (Levothyroxine) 50 Mcg Tablet 50 MCG PO DAILYAC Lisinopril (Lisinopril) 20 Mg Tablet 30 MG PO HS Memantine (Namenda) 10 Mg Tablet 5 MG PO MORNING Memantine (Namenda) 10 Mg Tablet 10 MG PO HS Mirtazapine (Mirtazapine) 15 Mg Tablet 15 MG PO HS Pantoprazole DR (Pantoprazole DR) 40 Mg Tablet.dr 40 MG PO MORNING Polyethylene Glycol 3350 (Polyethylene Glycol 3350) 17 Gm Powd.pack MORNING Prazosin (Prazosin) 1 Mg Capsule 1 MG PO QAM Prazosin (Prazosin) 2 Mg Capsule 2 MG PO HS Pregabalin (Lyrica) 50 Mg Capsule 50 MG PO BID Tamsulosin (Flomax) 0.4 Mg Capsule 0.4 MG PO DAILY Verapamil (Calan) 80 Mg Tablet 40 MG PO BID Scheduled PRN Buprenorphine (Butrans) 1 Each Patch.tdwk 1 EACH TD WEEKLY PRN PRN For Pain Cyclobenzaprine (Cyclobenzaprine) 10 Mg Tablet 10 MG PO TID PRN PRN Spasm Hydrocodone-Acetaminophen 5-325 mg (Hydrocodone-Acetaminophen 5-325 mg) 1 Each Tablet 1-2 TABLET PO Q4H PRN PRN For Pain Lorazepam (Lorazepam) 1 Mg Tablet 1 MG PO BID PRN PRN Headache Naproxen (Naproxen) 500 Mg Tab 500 MG PO BID PRN PRN For Pain Ondansetron ODT (Ondansetron ODT) 4 Mg Tab.rapdis 1-2 TABLET PO PRN For Nausea Ondansetron ODT (Zofran ODT) 4 Mg Tablet 4 MG PO Q4H PRN PRN For Nausea Prochlorperazine Maleate (Compazine) 10 Mg Tablet 10 MG PO TID PRN PRN Headache Promethazine (Promethazine) 25 Mg Tablet 25 MG PO Q6H PRN PRN Headache Take for headache OR nausea General Time Seen by MD: 11:08 Chief Complaint Suicidal ideation Risk-Psychiatric Illness Suicide Risk Stratification Suicide Risk Factors - Adult: : Previous attempt: Prior psych admissionNo: Access to firearms, Alcohol use, Substance abuse RF Statements: Risk factors reviewed Past Medical History Past Medical History fibromyalgia carpal tunnel syndrome migraines chronic pain sleep apnea Reports: Thyroid disease Past Surgical History denies Reports: Appendectomy Family History Noncontributory Smoking History Former Smoker Social History Alcohol Use: Denies alcohol use Drug Use: Other Other Social History: Local resident Occupation Not currently employed Ambulatory Status Independent Review of Systems General: Denies fever, chills, malaise. HEENT: Denies congestion, headache, sore throat. Respiratory: Denies dyspnea, cough, shortness of breath, wheezing. Cardiovascular: Denies chest pain, palpitations. Gastrointestinal: Denies vomiting, diarrhea, abdominal pain. Genitourinary: Denies frequency, urgency, dysuria, hematuria. Denies vaginal bleeding/discharge Otherwise as noted in HPI. Physical Exam General: Well appearing, well developed, well nourished, no acute distress. Browsing the Internet on her phone while reclining on a gurney Head: Atraumatic, normocephalic. Eyes: No scleral icterus or injection. No discharge. Vision grossly intact. ENT: Voice clear, hearing grossly intact. Respiratory: Regular rate and rhythm. Breath sounds present, clear to auscultation and equal bilaterally. No respiratory distress. No increased work of breathing, speaks in complete sentences. Cardiovascular: Regular rate and rhythm, without murmur, gallop or rub. No pedal edema. Gastrointestinal: Abdomen flat and non-tender without guarding or rebound. Bowel sounds normoactive. Skin: Warm and dry. Feet: DP and PT pulses 2+, negative pedal edema. There is a 1 cm dark bruise beneath the callus on the lateral aspect of her calcaneus on the left. This is tender to palpation. There is an area of mild tenderness on the contralateral heel in a similar location. Sensation and brisk capillary refill are intact in the phalanges. Neurological: Grossly nonfocal. Psychological: Alert and oriented. Speech appropriate, linear and logical. Behavior appropriate. Affect is somewhat flat. Initial Vital Signs Vital Signs (First) Date Time Temp Pulse Resp B/P Pulse Ox O2 Delivery O2 Flow Rate FiO2 11/30/16 10:31 37.0 89 16 117/83 96 Room Air Normal Interpretation & Diagnostics Lab Results Interpretation Result Diagram: 11/30/16 1135 11/30/16 1135 Test 11/30/16 10:54 11/30/16 11:35 Hold Urine Received (Received) White Blood Count 8.7th/mm3 (3.8-10.1) Red Blood Count 4.25mil/mm3 (3.90-5.20) Hemoglobin 13.1g/dL (12.0-15.6) Hematocrit 38.1% (35.0-46.0) Mean Corpuscular Volume 89.6fL (81-100) Mean Corpuscular Hemoglobin 30.8pg (27.0-35.0) Mean Corpuscular Hemoglobin Concent 34.4% (32.0-37.0) Red Cell Distribution Width 13.6% (12.3-15.4) Platelet Count 133bil/L (150-400) Neutrophils (%) (Auto) 58.7% (40-74) Lymphocytes (%) (Auto) 30.4% (14-46) Monocytes (%) (Auto) 8.0% (4-12) Eosinophils (%) (Auto) 2.1% (0-5) Basophils (%) (Auto) 0.2% (0-3) Sodium Level 141mEq/L (134-144) Potassium Level 4.3mEq/L (3.5-5.2) Chloride Level 99mEq/L (97-108) Carbon Dioxide Level 25mmol/L (18-29) Blood Urea Nitrogen 18mg/dL (6-24) Creatinine 0.99mg/dL (0.57-1.00) Estimat Glomerular Filtration Rate 85mL/min (>59) Glucose Level 120mg/dL (60-99) Calcium Level 9.4mg/dL (8.5-10.1) Total Bilirubin 0.3mg/dL (0.0-1.2) Aspartate Amino Transf (AST/SGOT) 99U/L (0-50) Alanine Aminotransferase (ALT/SGPT) 72U/L (0-32) Alkaline Phosphatase 148U/L (25-150) Total Protein 7.4g/dL (6.4-8.4) Albumin 4.1g/dL (3.4-5.0) Thyroid Stimulating Hormone (TSH) 0.619uIU/mL (0.450-4.500) Re-Eval/Medical Decision Med Decision/Clinical Course Is a 51-year-old female with a history of depression and suicide attempt presenting for suicidal ideation. She reports increasing depression, anxiety and thoughts of harming herself through overdose over the last 6 months. Reports recent end of a 30 year relationship as well as the necessity of changing her living situation. She is referred by pain clinic where she reported her suicidal thoughts. Patient admits to ongoing pain in her hands and feet which is chronic. She denies other physical complaints. Physical examination reveals a early stage ulcer on the lateral aspect of her left calcaneus. Otherwise benign. Normal vital signs. Urine tox is positive for benzodiazepines, breathalyzer is 0. CBC, CMP and TSH are ordered, social work referral placed. Patient is seeking admission. Discussed the case with DAYSI Goff. She arranges admission, which is accepted by Dr. Reyes. Patient is transferred to the mental health unit in stable condition.. Discharge & Departure Impression: Primary Impression: Suicidal ideation Disposition: ADMITTED TO HOSPITAL Referrals: Brigida James PA-C (PCP) EDSupervising Provider for APC: Ted Dempsey MD Attending Statement I saw and evaluated the patient in conjunction with the PA. I agree with the plan and findings as documented above. In brief, 51-year-old female presenting to the ED for evaluation several ideations. Well appearing, no acute distress. Nonlabored respirations. Good peripheral perfusion. RRR. No homicidal ideations. Given above, plan social work consult for voluntary admission. Nikhil Lorenzo PA-C Nov 30, 2016 11:32 Ted Dempsey MD Nov 30, 2016 11:56
[2016-11-30 11:46] LABS: BASOPHILS % (AUTO) 0.2 % (0-3); EOSINOPHILS % (AUTO) 2.1 % (0-5); Mean Corpuscular Hemoglobin 30.8 pg (27.0-35.0); Mean Corpuscular Volume 89.6 fL (81-100); NEUTROPHILS % (AUTO) 58.7 % (40-74); Platelet Count 133 bil/L (150-400)
[2016-11-30 14:22] VITALS: BP 102/74; PULSE 80; RESP 16; O2SAT 95
[2016-11-30 16:01] VITALS: BP 102/74; PULSE 80; RESP 16; O2SAT 95
[2016-11-30] MEDS ORDERED: Magnesium Hydroxide 10 mL Oral Concentration PO PRN (19:35)
[2016-11-30] MEDS ORDERED: Alum-Mag Hydrox-Simeth 30 mL Suspension PO PRN (19:35)
--- NOTE | 2016-11-30 19:46 | NUR ---
Nursing: Voluntary admit from ED @1615: 51 yo female w/5 day cert by Mirna Gillette (renewal on ); Nesha is admitted with SI and Hx of depression and anxiety. These symptoms have been increasing over the last 6 months, especially the last 1 1/2 months with 'constant' thoughts of suicide by overdose. She reports the end of a 30 year relationship and has been asked to move by the end of the year. She has been able to find a place in February. She also has chronic pain issues and is working with the [facility] pain clinic where she says she has been getting Lyrica, Baclofen and a Q weekly Buprenorphine patch. Her pain is generalized and especially hands and feet; her feet she describes as 7/10 and tender. She has a dime-sized area on outer L heel that looks like a resolving blood blister and is tender to touch. She says she was started on an antibiotic about 4 days ago but doesn't know what it was and I can't determine this through her records. She had a CVA in 2009 says she uses a c-pap and an order was received to set this up for her. Reports a few weeks ago was diagnosed with diabetes and started Metformin and says her blood sugars which she was checking randomly went from 300-400's to 100-200's. This was through her PCP, Dorinda Bourgeois. She is in the middle of a disability claim and has a hearing coming up soon(Jan 10) Pt is A&0 x4 and pleasant and cooperative. Her affect is blunted and sad but has been out in the milieu and social with peers.She is linear and logical and denies any psychotic sx. She continues with suicidal thoughts, and hopeless but will contract for safety.
[2016-11-30] MEDS: Polyethylene Glycol (PEG) 17 Gm Powder PO SCH ×2 (20:30→21:55)
[2016-11-30] MEDS: BusPIRone 15 mg Dividose Tablet PO SCH (21:56)
--- NOTE | 2016-12-01 05:16 | NUR ---
nursing, nights, 11-7 s- the noise woke me up. are things ok ? can i have some juice. thank you. o- has appeared to sleep [id number] and after 0030. awake briefly when rt brought c-pap machine at 0200. assessed q 15 minutes. a- interupted sleep, no apparent physical distress. p- monitor behavior/emotional state, quality, times and amount of sleep, use and effect of medication. justyn
[2016-12-01] MEDS: Pantoprazole 40 mg ER24 Tablet PO SCH ×2 (08:23→16:44)
[2016-12-01] MEDS: BusPIRone 15 mg Dividose Tablet PO SCH ×3 (08:24→20:25)
[2016-12-01] MEDS: buPROPion XL 300 mg ER24 Tablet PO SCH (08:25)
[2016-12-01] MEDS: Polyethylene Glycol (PEG) 17 Gm Powder PO SCH ×2 (08:27→20:30)
[2016-12-01 10:05] VITALS: BP 110/74; PULSE 82; RESP 16
--- NOTE | 2016-12-01 10:05 | NUR ---
Nursing Day Pt spending equal amounts of time in her room and out in the milieu. Morning BG 176, she is on oral metformin. Ate breakfast and took morning medications. She reports feeling safe on the unit and currently denying thoughts of self harm. She states "I feel quiet. I am just reflecting on things." Pt pleasant, calm and cooperative with care.
[2016-12-01] MEDS ORDERED: Alum-Mag Hydrox-Simeth 30 mL Suspension PO PRN (15:00)
[2016-12-01] MEDS ORDERED: Benzocaine-Menthol Lozenge 2/Pkg PO PRN (15:00)
[2016-12-01] MEDS ORDERED: Magnesium Hydroxide 10 mL Oral Concentration PO PRN (15:00)
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
--- NOTE | 2016-12-01 18:03 | NUR ---
[facility] Day Shift Pt maintained behavioral control throughout the shift. Pt affect appears flat, sad. Pt spends most of the shift isolating from peers and resting in her room. Pt is only slightly active on the unit and is not social with peers. Pt initially asked to share a room with another pt (due to both pt's need for a medical room), but pt decided she would prefer a single room by the the afternoon, which staff was able to accommodate. Pt did not engage in any unit activities throughout the shift. Pt attended all meals and ate approx 80% of all meals.
--- NOTE | 2016-12-01 19:05 | NUR ---
Advertising Agent/Counselor: S: "I'm sad today." O: Patient only slept 2.5 hours last night per staff. Patient did not rate S/I, but denies H/I. She also denies auditory and visual hallucinations. Depression is 7/10 and anxiety is 7/10. When asked her mood, patient stated, "Quiet and sad." A: Patient is cooperative, lethargic, withdrawn, detached, anxious, poor historian, poor insight, poor judgment. P: Follow the care plan, coordinate with out-patient providers.
--- NOTE | 2016-12-02 06:57 | NUR ---
Nursing Note Mediator 7pm to 7am Pt awake of start of shift, sitting in day room watching tv and interacting minimally with peers. Pts BS at bedtime 157. Pt given Ambien 5mg for sleep, went to bed at 2200 and slept through the night with uninterrupted sleep. Pt reports a foot ulcer on left foot however it was not assessed by this news writer as pt. went to bed early. Report given to oncoming RN. Monitored pt. q 15 minutes for safety, location, and accountability
[2016-12-02] MEDS: Polyethylene Glycol (PEG) 17 Gm Powder PO SCH ×2 (07:05→20:05)
[2016-12-02] MEDS: Pantoprazole 40 mg ER24 Tablet PO SCH ×2 (07:54→16:49)
[2016-12-02] MEDS: BusPIRone 15 mg Dividose Tablet PO SCH ×3 (07:54→20:38)
[2016-12-02] MEDS: buPROPion XL 300 mg ER24 Tablet PO SCH (08:30)
[2016-12-02 11:43] VITALS: BP 116/81; PULSE 83; RESP 16
--- NOTE | 2016-12-02 17:31 | NUR ---
Nursing Note [id number] Behavior S/O: Pt rates mood at a "6" on a scale of 1-10/10 the best. She states her mood is better "since I talked with the doctor and have been working on the exercises that he gave me." Pt is pleasant & cooperative. Pt has been in her room most of the day. She reports her foot has been painful. Pt has a dark spot under the skin approximately 1 cm across. There is a black marker around the perimeter. Pt reports, "My doctor said if it got any bigger than that [harry], I need to go to the emergency room." Pt says she is planning on going home tomorrow & has a follow-up appointment on Sunday with her doctor & will have him look at it then. Conversation tracking clear & organized with normal rate & rhythm. Full affect. Pt denies suicidal ideation. Pt states she wants to go home as she has a lot of things she needs to do. A: Pt slowly improving. P: Provide supportive environment. Monitor medications & effects.
[2016-12-02 19:55] VITALS: BP 114/80
--- NOTE | 2016-12-02 21:13 | NUR ---
OBSERVATIONS 0900 TO 2130 Pt was pleasant and cooperative with staff, social and appropriate when interacting with peers. Pt was isolative at times throughout the day, resting in her room. Pt states that the doctor has agreed to have her discharge tomorrow which pleases her. Pt participated in evening wrap-up and rated her mood at a 7/10. Maintained Q15 checks for safety as directed.
--- NOTE | 2016-12-03 06:24 | NUR ---
Nursing Note Farm Machinery Set Up Mechanic 7pm to 7am Pt reports mood is improving, reports depression is a 3/10, anxiety 5/10. Pt approached RN and stated she has a Butran pain patch on her stomach, that she came in with, prescribed from her pain clinic for neuropathic pain in her feet due. Pt reports that she is concerned she could withdrawl as the patch is due to be changed weekly and is expiring. Pt reports she is having some symptoms of withdrawl such as body aches, and upset stomach. Informed pt. that MD is aware of the patch however he reported that she had not spoken about it during their meeting today. Pt is supposedly leaving tomorrow and has patches at home. Pt given Tylenol for pain, Zofran for nausea with good relief. Pt slept through the night with minor interruptions. Monitored pt. q 15 minute checks for safety, location and accountability
[2016-12-03] MEDS: buPROPion XL 300 mg ER24 Tablet PO SCH (08:11)
[2016-12-03] MEDS: BusPIRone 15 mg Dividose Tablet PO SCH (08:14)
[2016-12-03] MEDS: Pantoprazole 40 mg ER24 Tablet PO SCH (08:15)
[2016-12-03] MEDS: Polyethylene Glycol (PEG) 17 Gm Powder PO SCH (08:30)
--- NOTE | 2016-12-03 12:07 | PCM.PNPSY ---
Subjective Date of Service Dec 02, 2016 Subjective The patient stated that she would "like to go home tomorrow, I think I will be ready." She stated that she has an upcoming disability hearing in December and that originally they had an open-ended plan for her to stay at the house with her former partner but now that is changed to March of this year. She feels this is due to the influence of a new roommate who was reportedly rude to her friend, Maria M when she called asking for some clothes and reportedly hung up on her. She plans to move into Maria M's home in February but this may occur earlier. She reports that she has a counseling appointment on Sunday. She denies side effects to medications Sleep: 8+ hours. Appetite: Reports the diabetic diet is not good and has not been eating at as much Suicidal and homicidal ideation: Denies Auditory hallucinations: Denies Visual hallucinations: Denies Other Psychotic Symptoms: N/A Anxiety: "A little because my home situation." Depression: "A little on the high side." Current Medications Current Medications Aspirin 81 mg DAILY PO Last administered on 12/02/16 07:56; Admin Dose 81 MG; Start 12/02/16 at 08:30 Atorvastatin Calcium 80 mg HS PO Last administered on 12/01/16 21:32; Admin Dose 80 MG; Start 11/30/16 at 21:00 Bupropion HCl 300 mg DAILY PO Last administered on 12/01/16 08:25; Admin Dose 300 MG; Start 12/01/16 at 08:30 Buspirone HCl 20 mg TID PO Last administered on 12/02/16 14:04; Admin Dose 20 MG; Start 11/30/16 at 20:30 Ciprofloxacin 500 mg BID PO Last administered on 12/01/16 21:31; Admin Dose 500 MG; Start 12/01/16 at 20:30; Stop 12/04/16 at 20:31 Citalopram Hydrobromide 30 mg DAILY PO Last administered on 12/02/16 07:55; Admin Dose 30 MG; Start 12/02/16 at 08:30 Citalopram Hydrobromide 40 mg DAILY PO Last administered on 12/01/16 08:26; Admin Dose 40 MG; Start 12/01/16 at 08:30; Stop 12/01/16 at 12:08; Status DC Clonazepam 0.5 mg BID PO Last administered on 12/02/16 07:56; Admin Dose 0.5 MG ; Start 11/30/16 at 20:30 Divalproex Sodium 500 mg BID PO Last administered on 12/02/16 07:56; Admin Dose 500 MG; Start 11/30/16 at 20:30 Hydrochlorothiazide 25 mg DAILY PO Last administered on 12/02/16 07:56; Admin Dose 25 MG; Start 12/01/16 at 08:30 Levothyroxine Sodium/ Levothyroxine Sodium 175 mcg DAILYAC PO Last administered on 12/01/16 08:23; Admin Dose 175 MCG; Start 12/01/16 at 07:30; Stop 12/02/16 at 08:00; Status DC Levothyroxine Sodium/ Levothyroxine Sodium 175 mcg DAILYAC PO Last administered on 12/02/16 09:23; Admin Dose 175 MCG; Start 12/02/16 at 07:59 Lisinopril 30 mg DAILY PO Last administered on 12/01/16 08:25; Admin Dose 30 MG ; Start 12/01/16 at 08:30 Metformin HCl 1,000 mg BID PO Last administered on 12/02/16 07:56; Admin Dose 1 ,000 MG; Start 12/01/16 at 08:30 Mirtazapine 15 mg HS PO Last administered on 12/01/16 20:31; Admin Dose 15 MG; Start 12/01/16 at 21:00 Pantoprazole 40 mg BIDAC PO Last administered on 12/02/16 16:49; Admin Dose 40 MG; Start 12/01/16 at 07:30 Polyethylene Glycol 17 gm BID PO Last administered on 12/02/16 07:05; Admin Dose 17 GM; Start 11/30/16 at 20:30 Pregabalin 50 mg BID PO Last administered on 12/02/16 07:57; Admin Dose 50 MG; Start 12/01/16 at 08:30 Zolpidem Tartrate START WITH 5 MG AND MAY REP... HS PRN PO Last administered on 12/01/16 20:31; Admin Dose 5 MG; Start 11/30/16 at 19:35 Mental Status Exam Vital Signs Vital Signs Date Time Temp Pulse Resp B/P Pulse Ox O2 Delivery O2 Flow Rate FiO2 12/02/16 11:43 36.2 83 16 116/81 Appearance: Neat/well groomed Attitude: Pleasant, Cooperative Behavior: No unusual behavior Affect: Well Modulated/Appropriate Mood: Anxious Thought Process/Associations: Logical/Sequential, Goal Directed Speech Production: Normal Speech Rate: Normal Speech Articulation: Normal Thought Content: Appropriate Danger to Self/Suicidal Ideati: None Danger to Others: None Hallucinations: Auditory (Denies), Visual (Denies) Consciousness: Alert Orientation: Person, Place, Date, Situation Memory: Grossly Intact Estimate Intellectual Function: Average Attention/Concentration & Cogn: Grossly Intact Insight: Good Judgement: Good Result Diagram: 11/30/16 1135 11/30/16 1135 Mental Health Plan The patient is a 51-year-old white female, with worsening symptoms of major depression that is being compounded by a breakup of a long-term relationship. She is needing to move out by March and this is causing extreme stress to the point where all of her depressive symptoms have worsened as well as she now has suicidal ideation and a history of a previous suicide attempt. The patient requested inpatient treatment for safety and licensed professional counselor. The patient was on relatively high doses of multiple different medications. Given the fact that she was on citalopram, buspirone, mirtazapine, and Wellbutrin, there was some concern about potential for serotonin syndrome. The patient was agreeable to decreasing citalopram to 30 mg and mirtazapine to 15 mg nightly which should be more effective for insomnia. [place] AXIS I 1. Major depressive disorder, recurrent. 2. Adjustment disorder. AXIS II Defer. AXIS III Hypertension, CVA 2010, sleep apnea, ets-gtptfgp-vbeouvjim diabetes, hypothyroidism, foot ulcer, left foot. AXIS IV Patient has poor coping skills and is quite frightened about the potential of being on her own AXIS V 40 Treatments 1. The patient is admitted to the inpatient unit and will be provided a safe and secure environment. 2. The patient is denying current active suicidality and is not in need of a one-to-one at this time. She is agreeing to notify us should he have any acute suicidal or homicidal thoughts. 3. The patient is encouraged to participate with group and milieu activities. 4. The patient will be seen by the treatment team on a daily basis to assess symptoms, side effects and response to treatment. 5. The patient will be continued on lowered dose of citalopram 30 mg daily for depression. 6. The patient will be continued on buspirone 20mg po tid 7. The patient will be continued on lowered dose of mirtazapine 15mg nightly 8. Continue clonazepam and valproic acid as written 9. Anticipated length of stay is 1-2 days. Zhen Monson MD Dec 02, 2016 18:54
--- NOTE | 2016-12-03 12:15 | PCM.DIMED ---
Discharge Instructions Date of Service Dec 03, 2016 Dates of Hospitalization Nov 30, 2016 at 15:54 Discharge Diagnosis Discharge Diagnosis AXIS I 1. Major depressive disorder, recurrent. 2. Adjustment disorder with anxious mood. AXIS II Defer. AXIS III Hypertension, CVA 2009, sleep apnea, whd-tougjzk-putwwnkkz diabetes, hypothyroidism, foot ulcer, left foot. AXIS IV Severe with: Chronic pain; Chronic medical condition; Unemployment; Cognitive impairment; Relationship conflicts w/spouse and roommate and recent separation from spouse. AXIS V 50 Test Results Test Results CBC Test 11/30/16 11:35 White Blood Count 8.7th/mm3 (3.8-10.1) Red Blood Count 4.25mil/mm3 (3.90-5.20) Hemoglobin 13.1g/dL (12.0-15.6) Hematocrit 38.1% (35.0-46.0) Mean Corpuscular Volume 89.6fL (81-100) Mean Corpuscular Hemoglobin 30.8pg (27.0-35.0) Mean Corpuscular Hemoglobin Concent 34.4% (32.0-37.0) Red Cell Distribution Width 13.6% (12.3-15.4) Platelet Count 133bil/L (150-400) Neutrophils (%) (Auto) 58.7% (40-74) Lymphocytes (%) (Auto) 30.4% (14-46) Monocytes (%) (Auto) 8.0% (4-12) Eosinophils (%) (Auto) 2.1% (0-5) Basophils (%) (Auto) 0.2% (0-3) CMP Test 11/30/16 11:35 Sodium Level 141mEq/L Potassium Level 4.3mEq/L Chloride Level 99mEq/L Carbon Dioxide Level 25mmol/L Blood Urea Nitrogen 18mg/dL Creatinine 0.99mg/dL Estimat Glomerular Filtration Rate 85mL/min Glucose Level 120mg/dL Calcium Level 9.4mg/dL Total Bilirubin 0.3mg/dL Aspartate Amino Transf (AST/SGOT) 99U/L Alanine Aminotransferase (ALT/SGPT) 72U/L Alkaline Phosphatase 148U/L Total Protein 7.4g/dL Albumin 4.1g/dL Thyroid Stimulating Hormone (TSH) 0.619uIU/mL Diet Discharge Diet: Diabetic Activity Discharge Activity: No restrictions Call your provider Call your provider for: Other (worsening depression) Patient Instructions Patient Instructions Should you have any thoughts of harming yourself or others, please call the crisis line, your provider, 911, or go to the nearest Emergency Department. Do not change or discontinue your medications without discussing with your provider. You have been given a prescription for 30 days supply of your new medication Follow-up plan Counselor: Le Franklin on Sunday12/05/16 per patient report. Family Practice Brigida James on Sunday12/04/16 per patient report. Zhen Monson MD Dec 03, 2016 12:15
[2016-12-03] MEDS ORDERED: METF500T PO (12:33)
[2016-12-03] MEDS ORDERED: MIRT15TA6 PO (12:33)
[2016-12-03] MEDS ORDERED: BUSP15TA3 PO (12:33)
[2016-12-03] MEDS ORDERED: BUPR300T51 PO (12:33)
[2016-12-03] MEDS ORDERED: HYDR25TA4 PO (12:33)
[2016-12-03] MEDS ORDERED: LEVO50TA6 PO (12:33)
[2016-12-03] MEDS ORDERED: CITA20TA PO (12:33)
[2016-12-03] MEDS ORDERED: BACL10TA PO (12:33)
[2016-12-03] MEDS ORDERED: PREG50CA PO (12:34)
--- NOTE | 2016-12-03 13:58 | NUR ---
Nursing Discharge Note: Patient cooperative with discharge process. Acknowledges understanding of d/c instructions and has a copy with them upon leaving unit at 1350. Belongings accounted for and with patient. Prescriptions faxed to patients pharmacy [facility]. Hard copies with patient. Patient denies harmful thoughts and hallucinations at this time.
--- NOTE | 2016-12-03 17:35 | PCM.DC.MED ---
Discharge Summary Date of Service Dec 03, 2016 Dates of Hospitalization Date of Hospital Admission Nov 30, 2016 at 15:54 Date of Discharge: Dec 03, 2016 Providers: Admitting Physician: Sudhir Reyes MD Primary Care Physician: Brigida James PA-C Attending Physician: Sudhir Reyes MD Diagnosis at Time of Discharge Diagnosis at Time of Discharge AXIS I 1. Major depressive disorder, recurrent. 2. Adjustment disorder with anxious mood. AXIS II Defer. AXIS III Hypertension, CVA 2010, sleep apnea, [id number] diabetes, hypothyroidism, foot ulcer, left foot. AXIS IV Severe with: Chronic pain; Chronic medical condition; Unemployment; Cognitive impairment; Relationship conflicts w/spouse and roommate and recent separation from spouse. AXIS V [address] Reyes's note from 12/01/16 IDENTIFICATION: The patient is a 51-year-old single white female. She had previously been living with her female partner for the past 30 years. They are breaking up and she is being required to move out in February. She is not on disability and lives on [address]. REASON FOR ADMISSION: Client had suicidal ideation with a plan to overdose on her medications. SUMMARY OF PRESENT ILLNESS: The patient is a 51-year-old with a history of depression and anxiety and previous suicide attempts who presented to the ED after approximately six month period of increasing depression (poor sleep, interest, high guilt, poor energy, poor concentration) and for the last month and a half increasing intensity culminating in suicidal ideation. She does have a previous suicide attempt by overdosing in 2016. She describes a 13 pound weight loss and is extremely anxious and fearful about potentially being on her own. She and her partner became intimately involved in a relationship in their teens and as a result, she does not have much experience being independent or living on her own. The condition has been developing over the past year and is at present of a severe intensity manifesting with all the above symptoms and suicidal ideation with a plan to overdose on her many potential lethal medications. All of the above is made worse by interpersonal relationship conflicts and poor sleep. She is currently presenting with significant emotional liability, marked overwhelm of her coping skills and severe impairment in coping. As a result her impulse control is poor and she is concerned that she will act on the suicide if not in the hospital. She denied psychiatric review of systems for annie, psychosis or substance abuse. Hospital Course The patient was admitted to the unit and restarted on her current medications. As the patient was on relatively high doses of multiple different medications and given the fact that she was on citalopram, buspirone, mirtazapine, and Wellbutrin, there was some concern about potential for serotonin syndrome. The patient was agreeable to decreasing citalopram to 30 mg and mirtazapine to 15 mg nightly which should be more effective for insomnia. The patient noted that her mood improved and she was less anxious and depressed. The patient had concerns about a roommate who is now living in their home and how she was interacting with her friend Maria M who is helping her out. The patient brought up several scenarios in order to prepare herself for conversations to avoid using charged statements. The patient reported by the time of discharge that she felt she was stable and ready to leave. We discussed that should her depression return she may need to increase her citalopram dose. At the time of discharge, the patient was reporting her mood as "anxiety is a little up fair." Sleep was reported as 8 hours and appetite was reported as decreased due to the diabetic diet but otherwise normal. Her anxiety was reported as 7-8/10 and depression as 5/10 /10. She denied auditory or visual hallucinations and any thought, intent or plan of hurting herself or others. She denied side effects. Exam Vital Signs (Last) Date Time Temp Pulse Resp B/P Pulse Ox O2 Delivery O2 Flow Rate FiO2 12/02/16 19:55 114/80 12/02/16 11:43 36.2 83 16 11/30/16 16:01 95 Room Air Exam Discharge Mental Status Exam Appearance: Neat/well groomed Attitude: Pleasant, Cooperative Behavior: No unusual behavior Affect: Well Modulated/Appropriate Mood: Anxious Thought Process/Associations: Logical/Sequential, Goal Directed Speech Production: Normal Speech Rate: Normal Speech Articulation: Normal Thought Content: Appropriate Danger to Self/Suicidal Ideati: None Danger to Others: None Hallucinations: Auditory (Denies), Visual (Denies) Consciousness: Alert Orientation: Person, Place, Date, Situation Memory: Grossly Intact Estimate Intellectual Function: Average Attention/Concentration & Cogn: Grossly Intact Insight: Good Judgement: Good Test 11/30/16 10:54 11/30/16 11:35 Hold Urine Received (Received) White Blood Count 8.7th/mm3 (3.8-10.1) Red Blood Count 4.25mil/mm3 (3.90-5.20) Hemoglobin 13.1g/dL (12.0-15.6) Hematocrit 38.1% (35.0-46.0) Mean Corpuscular Volume 89.6fL (81-100) Mean Corpuscular Hemoglobin 30.8pg (27.0-35.0) Mean Corpuscular Hemoglobin Concent 34.4% (32.0-37.0) Red Cell Distribution Width 13.6% (12.3-15.4) Platelet Count 133bil/L (150-400) Neutrophils (%) (Auto) 58.7% (40-74) Lymphocytes (%) (Auto) 30.4% (14-46) Monocytes (%) (Auto) 8.0% (4-12) Eosinophils (%) (Auto) 2.1% (0-5) Basophils (%) (Auto) 0.2% (0-3) Sodium Level 141mEq/L (134-144) Potassium Level 4.3mEq/L (3.5-5.2) Chloride Level 99mEq/L (97-108) Carbon Dioxide Level 25mmol/L (18-29) Blood Urea Nitrogen 18mg/dL (6-24) Creatinine 0.99mg/dL (0.57-1.00) Estimat Glomerular Filtration Rate 85mL/min (>59) Glucose Level 120mg/dL (60-99) Calcium Level 9.4mg/dL (8.5-10.1) Total Bilirubin 0.3mg/dL (0.0-1.2) Aspartate Amino Transf (AST/SGOT) 99U/L (0-50) Alanine Aminotransferase (ALT/SGPT) 72U/L (0-32) Alkaline Phosphatase 148U/L (25-150) Total Protein 7.4g/dL (6.4-8.4) Albumin 4.1g/dL (3.4-5.0) Thyroid Stimulating Hormone (TSH) 0.619uIU/mL (0.450-4.500) Discharge Medications Discharge Medications Aspirin (Aspirin) 81 Mg Tablet.dr 81 MG PO DAILY (Reported) Atorvastatin Calcium (Atorvastatin Calcium) 40 Mg Tablet 80 MG PO HS (Reported) Bupropion ER (Wellbutrin XL) 300 Mg Tab.er.24h 300 MG PO DAILY Prescribed by: KALPANA MONSON MD Buspirone (Buspirone) 15 Mg Tablet 20 MG PO TID Prescribed by: KALPANA MONSON MD Ciprofloxacin (Ciprofloxacin) 500 Mg Tablet 500 MG PO BID Prescribed by: ELLYN OVALLE Citalopram Hydrobromide (Celexa) 20 Mg Tablet 30 MG PO DAILY Prescribed by: KALPANA MONSON MD Clonazepam (Clonazepam) 0.5 Mg Tablet BID (Reported) Divalproex DR (Depakote DR) 500 Mg Tablet 500 MG PO BID (Reported) Swallowed whole without chewing to avoid local irritation of the mouth and throat. Ferrous Sulfate (Ferrous Sulfate) 325 Mg Tablet 325 MG PO MORNING (Reported) Hydrochlorothiazide (Hydrochlorothiazide) 25 Mg Tablet 25 MG PO DAILY Prescribed by: KALPANA MONSON MD Levothyroxine (Levothyroxine) 50 Mcg Tablet 175 MCG PO DAILYAC Prescribed by: KALPANA MONSON MD Lisinopril (Lisinopril) 20 Mg Tablet 30 MG PO HS Prescribed by: JAN LOVELL MD Metformin (Glucophage) 500 Mg Tablet 1,000 MG PO BID Prescribed by: KALPANA MONSON MD Mirtazapine (Mirtazapine) 15 Mg Tablet 15 MG PO HS Prescribed by: KALPANA MONSON MD Pantoprazole DR (Pantoprazole DR) 40 Mg Tablet.dr 40 MG PO MORNING (Reported) Polyethylene Glycol 3350 (Polyethylene Glycol 3350) 17 Gm Powd.pack MORNING ( Reported) Prazosin (Prazosin) 1 Mg Capsule 1 MG PO QAM (Reported) Prazosin (Prazosin) 2 Mg Capsule 2 MG PO HS (Reported) Pregabalin (Lyrica) 50 Mg Capsule 150 MG PO BID Prescribed by: KALPANA MONSON MD As needed Baclofen (Baclofen) 10 Mg Tablet 10 MG PO BID PRN PRN Muscle spasm Prescribed by: KALPANA MONSON MD Buprenorphine (Butrans) 1 Each Patch.tdwk 1 EACH TD WEEKLY PRN PRN For Pain ( Reported) Hydrocodone-Acetaminophen 5-325 mg (Hydrocodone-Acetaminophen 5-325 mg) 1 Each Tablet 1-2 TABLET PO Q4H PRN PRN For Pain Prescribed by: KHADIJAH JONES MD Ondansetron ODT (Zofran ODT) 4 Mg Tablet 4 MG PO Q4H PRN PRN For Nausea Prescribed by: ENA HERNÁNDEZ DO Promethazine (Promethazine) 25 Mg Tablet 25 MG PO Q6H PRN PRN Headache Take for headache OR nausea Prescribed by: KHADIJAH JONES MD Followup Plan Disposition: The patient is requesting discharge and there was no current indication for further hospitalization. The patient verbally consented to take the prescribed medications. The patient verbally expressed understanding of the risks, benefits, alternative treatment options, and risks of not taking the prescribed medication. The patient verbally expressed understanding of the medication instructions, that she will adhere to the prescribed medication, and that she will go to all aftercare scheduled appointments. Follow-up plan Counselor: Le [place] on Sunday12/05/[address] [facility] Brigida James on Sunday12/04/16 per patient report. Discharge Diet: Diabetic Discharge Activity: No restrictions Patient Instructions Should you have any thoughts of harming yourself or others, please call the crisis line, your provider, 911, or go to the nearest Emergency Department. Do not change or discontinue your medications without discussing with your provider. You have been given a prescription for 30 days supply of your new medication Kalpana Monson MD Dec 03, 2016 17:35
== END 2016-12-03 13:50 | disposition home or self-care (01) | DRG 885 ==
LOC: SED 10:27 → MHC 15:54
PROVIDERS: ADMIT Psychiatry & Neurology Psychiatry; ATTEND Psychiatry & Neurology Psychiatry
DX: F33.9 Major depressive disorder, recurrent, unspecified (principal); E11.9 Type 2 diabetes mellitus without complications; I10 Essential (primary) hypertension; E03.9 Hypothyroidism, unspecified; G89.29 Other chronic pain; F41.8 Other specified anxiety disorders